=== PATIENT | male | born 2000 | race African-American/Black ===

== ENCOUNTER 2023-12-12 16:10 | Emergency (ER) | payer OTHER ==
[2023-12-12 16:23] VITALS: O2SAT 98
--- NOTE | 2023-12-12 16:41 | ED Physician Documentation ---
History of Present Illness - Stated complaint Stated Complaint: RT HAND LAC - Chief complaint Chief Complaint: Laceration - History obtained from History obtained from: Patient - History of Present Illness Timing: Today Pain level max: 3 Pain level now: 3 - Additonal information Additional information: 23-year-old, right-handed, male presents to the emergency department with a laceration to the right thumb while working at [employer] today. He was washing dishes when he was accidentally cut. Tetanus shot up-to-date. No numbness or tingling. PD PAST MEDICAL HISTORY - Past Medical History Past Medical History: No - Past Surgical History Past Surgical History: No - Present Medications Home Medications: Ambulatory Orders Medication Instructions Recorded Confirmed No Known Home Medications 12/12/23 12/12/23 - Allergies Allergies/Adverse Reactions: Allergies Allergy/AdvReac Type Severity Reaction Status Date / Time No Known Drug Allergies Allergy Verified 12/12/23 16:18 - Social History Does the pt smoke?: No Smoking Status: Never smoker Does the pt drink ETOH?: No Substance Use and Type: Marijuana - Immunizations Immunizations are current?: No Immunizations: TDAP >10years/unknown PD ED PE NORMAL - Vitals Vital signs reviewed: Yes - General General: Alert and oriented X 3, No acute distress - Derm Derm: Warm and dry - Neuro Neuro: Alert and oriented X 3 PD ED PE EXPANDED - Extremities LISA UE/Hands Visual: 1 - laceration (1 cm, subcutaneous. Neurovascular intact) Results - Vitals Vitals: Vital Signs - 24 hr 12/12/23 12/12/23 16:13 17:12 Temperature 36.7 C 36.6 C Heart Rate 93 80 Respiratory 16 15 Rate Blood Pressure 140/77 H 129/54 L O2 Saturation 98 98 Procedures - Laceration (location) R thumb Length in cm: 1 Wound type: Linear, Into subcut fat, Clean Neurovascular status: Sensory intact, Motor intact, Vascular intact Tendon involvement: Tendon intact Wound preparation: Irrigated copiously NS Skin layer closure: Dermabond (T ring closure system) Other: Patient tolerated well, No complications, Neurovascular intact, Dressing applied, Tetanus booster given PD Medical Decision Making - ED course Complexity details: considered differential, d/w patient ED course: 23-year-old male with a right thumb laceration at work today. Laceration repaired with the T ring closure system. L&I paperwork [place] out [id number]. Wound care instructions given at bedside. Placed in a splint for comfort and to protect the area. Patient counseled regarding signs and symptoms for which I believe and urgent re-evaluation would be necessary. Patient with good understanding of and agreement to plan and is comfortable going home at this time This document was made in part using voice recognition software. While efforts are made to proofread this document, sound alike and grammatical errors may occur. Departure - Departure Disposition: Home, Self Care Clinical Impression: Laceration of thumb Qualifiers: Encounter type: initial encounter Damage to nail status: without damage Foreign body presence: without foreign body Laterality: right Qualified Code(s): S61.011A - Laceration without foreign body of right thumb without damage to nail, initial encounter Condition: Good Instructions: ED Laceration Ext Skin Glue Follow-Up: your,doctor as needed [Other] Comments: Keep the area clean. Please return if you worsen. Do not apply any ointments as this may dissolve the glue. You can use the splint to help protect the area over the next few days. The T ring closure system should fall off in approximately 5 to 7 days. Please use return if you notice redness, swelling or drainage from the wound. Forms: PCP List Discharge Date/Time: 12/12/23 17:14
[2023-12-12] MEDS: TETANUS/DIPHTHERIA/PERTUSSIS 0.5 ML SYRINGE IM ONE (16:46)
[2023-12-12 17:19] VITALS: BP 129/54
== END 2023-12-12 17:14 | disposition home or self-care (01) ==
LOC: ED 16:10
DX: S61.011A Laceration without foreign body of right thumb without damage to nail, initial encounter (principal); W45.8XXA Other foreign body or object entering through skin, initial encounter; Y93.G1 Activity, food preparation and clean up; Y92.511 Restaurant or cafe as the place of occurrence of the external cause; Y99.0 Civilian activity done for income or pay; Z23 Encounter for immunization
CPT/HCPCS: 12001; 90471; 99283